=== PATIENT | female | born 1950 | race Caucasian/White ===

== ENCOUNTER → 2021-10-12 | Outpatient (CLI) | payer MEDICARE ==
[~2021-10-12] MED LIST: ALLEGRA ALLERG180 MG PO; AUGMENTIN 875-1 EACH PO; CIPRO500 MG PO; COZAAR50 MG PO; DEXILANT60 MG PO; NAPROXEN 250 M250 MG PO; NORCO 7.5-3251 EACH PO
== END ==
LOC: KOH-I 10-10 15:00
DX: M51.16 Intervertebral disc disorders with radiculopathy, lumbar region (principal); Z98.1 Arthrodesis status; M25.78 Osteophyte, vertebrae; M48.061 Spinal stenosis, lumbar region without neurogenic claudication; M47.26 Other spondylosis with radiculopathy, lumbar region
CPT/HCPCS: 72131

== ENCOUNTER → 2021-10-19 | Outpatient (CLI) | payer MEDICARE | LOC: CT 09:11 | DX: G54.1 Lumbosacral plexus disorders (principal); Z98.1 Arthrodesis status | CPT/HCPCS: 72194; Q9967 ==